=== PATIENT | female | born 1975 | race Caucasian/White ===

== ENCOUNTER → 2017-02-04 | Outpatient (CLI) | payer BC ==
[~2017-02-04] MED LIST: BELVIQ PO; CLARITIN 1010 MG/TAB PO; DOMPERIDONE10 MG/CAP PO; FASTIN30 MG PO; FLUOXETINE; NEXIUM 20MG CAP20 MG PO; PHENERGAN 25 TA25 MG PO; PHENERGAN25 MG RC; PHENTERMINE15 MG PO; PREDNISONE20 MG PO; PRIL40; PRIL40 PO; PRILOSEC 20MG20 MG PO; PROBIOTIC FORMU1 CAP PO; PROZAC 20MG20 MG PO; PROZAC40 MG PO; QUESTRAN4 GM/9 GM PO; REGLAN 5MG T5 MG/TAB PO; RT ADVAIR 528 DISKUS IH; TOPAKAX; TOPAMAX 25MG25 M1 PO; WELLBUTRIN 75MG75 MG; WELLBUTRIN XL300 MG PO; ZOFRAN 4MG T4 MG/TAB PO
== END ==
LOC: COL.RAD 02-02 13:30
DX: N83.292 Other ovarian cyst, left side (principal); R10.32 Left lower quadrant pain; Z90.721 Acquired absence of ovaries, unilateral; Z90.710 Acquired absence of both cervix and uterus

== ENCOUNTER → 2017-02-10 | Outpatient (CLI) | payer BC | LOC: MC.RAD 13:24 | DX: D24.2 Benign neoplasm of left breast (principal) ==

== ENCOUNTER → 2017-03-22 | Outpatient (CLI) | payer BC | LOC: COL.RAD 14:51 | DX: N83.202 Unspecified ovarian cyst, left side (principal) ==

== ENCOUNTER → 2017-09-15 | Outpatient (CLI) | payer BC | LOC: MC.RAD 09-02 13:20 | DX: Z12.31 Encounter for screening mammogram for malignant neoplasm of breast (principal) ==

== ENCOUNTER → 2018-10-05 | Outpatient (CLI) | payer BC | LOC: MC.RAD 15:52 | DX: Z12.31 Encounter for screening mammogram for malignant neoplasm of breast (principal) ==

== ENCOUNTER → 2019-10-30 | Outpatient (CLI) | payer BC | LOC: MC.RAD 16:32 | DX: Z12.31 Encounter for screening mammogram for malignant neoplasm of breast (principal); Z98.890 Other specified postprocedural states ==

== ENCOUNTER → 2020-11-18 | Outpatient (CLI) | payer BC | LOC: MC.RAD 14:24 | DX: Z12.31 Encounter for screening mammogram for malignant neoplasm of breast (principal) ==

== ENCOUNTER 2021-06-26 08:41 | Day surgery (SDC) | payer BC ==
[~2021-06-26] VITALS: Ht 157.5 cm; Wt 76.2 kg
[~2021-06-26 08:41] MED LIST changes: -PROBIOTIC FORMU1 CAP PO; +PROBIOTIC-MAJOR PO
[2021-06-26 08:57] VITALS: BP 102/74; PULSE 81; TEMP 97.9
[2021-06-26] MEDS ORDERED: WELLBUTRIN XL150 MG PO (09:00)
[2021-06-26] MEDS ORDERED: REGLAN 5MG T5 MG/TAB PO (09:00)
[2021-06-26] MEDS ORDERED: LEXAPRO 10MG10 MG PO (09:02)
[2021-06-26 10:35] VITALS: BP 95/72; PULSE 82; TEMP 97.8
--- NOTE | 2021-06-26 10:35 | NUR ---
Patient arrives to [facility] via cart, accompanied by [facility] RN Rosita. She is alert and oriented. SHe ambulates to the chair in her room with steady gait. Monitoring is applied - VSS and WNL on room air. PIV to TKO. Her family is at the bedside. She denies pain or nausea. She is offered and receives water and a muffin to eat.
[2021-06-26 10:50] VITALS: BP 104/68; PULSE 80
--- NOTE | 2021-06-26 10:50 | NUR ---
Patient is resting comfortably. VSS on room air. She is eating/drinking and tolerating PO well.
[2021-06-26 11:05] VITALS: BP 108/55; PULSE 69
--- NOTE | 2021-06-26 11:09 | NUR ---
Patient has met discharge criteria. She is tolerating PO well. DIscharge instructions are discussed; she denies any questions and verbalizes understanding. PIV is removed with catheter intact and hemostasis achieved. She is changing to her clothing independently. She will wait for Dr. Cleary to come and speak to her prior to discharge.
--- NOTE | 2021-06-26 11:14 | NUR ---
Dr. Cleary comes to the bedside to speak to the patient at this time.
--- NOTE | 2021-06-26 11:16 | NUR ---
Patient is escorted to the exit via wheelchair by ALICIA Hernandez. She is discharged to the care of her spouse, Sedrick, who drives her home in a private vehicle at 1116.
== END 2021-06-26 11:17 | disposition home or self-care (01) ==
LOC: SDCO 08:41
DX: Z12.11 Encounter for screening for malignant neoplasm of colon (principal); K21.9 Gastro-esophageal reflux disease without esophagitis; G47.33 Obstructive sleep apnea (adult) (pediatric); J45.909 Unspecified asthma, uncomplicated; G47.00 Insomnia, unspecified; E78.5 Hyperlipidemia, unspecified; E66.9 Obesity, unspecified; K58.9 Irritable bowel syndrome, unspecified; D64.9 Anemia, unspecified; F32.9 Major depressive disorder, single episode, unspecified; F41.9 Anxiety disorder, unspecified; Z20.822 Contact with and (suspected) exposure to COVID-19; Z79.899 Other long term (current) drug therapy; Z80.0 Family history of malignant neoplasm of digestive organs
CPT/HCPCS: J2704; J7120

== ENCOUNTER → 2021-12-17 | Outpatient (CLI) | payer BC ==
[~2021-12-17] MED LIST changes: +LEXAPRO 10MG10 MG PO; +WELLBUTRIN XL150 MG PO
== END ==
LOC: MC.RAD 16:34
DX: Z12.31 Encounter for screening mammogram for malignant neoplasm of breast (principal); N64.89 Other specified disorders of breast

== ENCOUNTER → 2022-01-01 | Outpatient (CLI) | payer BC | LOC: MC.RAD 09:51 | DX: Z12.31 Encounter for screening mammogram for malignant neoplasm of breast (principal) ==

== ENCOUNTER → 2022-12-21 | Outpatient (CLI) | payer BC | LOC: MC.RAD 16:30 | DX: Z12.31 Encounter for screening mammogram for malignant neoplasm of breast (principal) ==